=== PATIENT | female | born 1985 | race Caucasian/White ===

== ENCOUNTER 2023-06-25 21:08 | Emergency (ER) | payer OTHER, SELFPAY ==
[2023-06-25 21:10] VITALS: BP 191/103; PULSE 112; RESP 18; TEMP 36.8; O2SAT 97
[2023-06-25 21:20] VITALS: BP 208/100; PULSE 110; RESP 30; O2SAT 98
[2023-06-25 21:26] VITALS: BMI 49.1
[2023-06-25 21:28] LABS: Bedside Glucose 193 mg/dL (74-106)
--- NOTE | 2023-06-25 21:30 | CT_ITS ---
EXAM: CT HEAD WITHOUT INTRAVENOUS CONTRAST CLINICAL INDICATION: seizure -- S?P RT MCA Bypass TECHNIQUE: Multiple axial images were obtained of the head without intravenous contrast. This CT exam was performed using one or more of the following dose reduction techniques: automated exposure control, adjustment of the mA and/or kV according to patient size, and/or use of iterative reconstruction technique. RADIATION DOSE: Total DLP: 782.05 mGy-cm. COMPARISON: No relevant prior studies available. FINDINGS: BRAIN AND EXTRA-AXIAL SPACES: Unremarkable. No intra- or extra-axial hemorrhage. No evidence of acute infarct. No intracranial mass or mass effect. There is preservation of the pinto/white matter interface. Posterior fossa structures are unremarkable. Ventricles are appropriate for age. No hydrocephalus. Basal cisterns are patent. BONES/JOINTS: Findings of right craniotomy noted with overlying soft tissue swelling and subcutaneous emphysema. Bone flap is not depressed. Typical dural hyperdensity noted just beneath the bone flap. SINUSES: Unremarkable as visualized. Clear. MASTOID AIR CELLS: Unremarkable. Clear. ORBITS: Visualized globes, extraocular muscles, optic nerves and retrobulbar fat appear unremarkable. CT/Brain/Head without Contrast IMPRESSION: Findings of recent right craniotomy. No acute intracranial abnormality; no acute intracranial hemorrhage or infarction identified. Electronically Signed: Joey Guzman MD at 22:31 EDT ,
--- NOTE | 2023-06-25 21:31 | EKG12_ITS ---
Test Reason : dysrhythmia Blood Pressure : / mmHG Vent. Rate : 098 BPM Atrial Rate : 098 BPM P-R Int : 144 ms QRS Dur : 096 ms QT Int : 384 ms P-R-T Axes : 035 000 031 degrees QTc Int : 490 ms Normal sinus rhythm Moderate voltage criteria for LVH, may be normal variant ( R in aVL , Anderson product ) Prolonged QT Abnormal ECG Confirmed by Chavez Briceño ([id number]), slot editor WENDY FITCH ([id number]) on 06/26/2023 11:13:52 AM Referred By: Paramjit Confirmed By:Chavez Briceño
[2023-06-25 21:37] LABS: Absolute Lymphocyte Count 3.41 X10^3/uL (0.83-4.51); Absolute Neutrophil Count 4.7 X10^3/uL (2.0-7.7); Basophil# 0.05 X10^3/uL; Basophil% 0.5 % (0-1); Eosinophil# 0.48 X10^3/uL; Eosinophils% 5.1 % (0-5); Hematocrit 37.1 % (37-47); Hemoglobin 12.7 g/dL (12.0-15.0); Lymphocyte # 3.41 X10^3/ul (0.83-4.51); Lymphocyte % 36.5 % (19-41); Mean Corp Hgb Conc 34.2 g/dL (32-36); Mean Corpuscular Hgb 28.9 pg (27.0-32.0); Mean Corpuscular Volume 84.5 fL (81-99); Mean Platelet Vol. 10.9 fl (6.2-12.0); Monocyte# 0.51 X10^3/uL; Monocyte% 5.5 % (0-10); NRBC Flagged by Analyzer 0.2 % (0-5); Neutrophil # 4.74 X10^3/uL (2.7-7.7); Neutrophil % 50.9 % (47-70); Platelet Count 313 K/mm3 (150-450); RBC Distribution Width CV 13.4 % (11.6-14.6); RBC Distribution Width SD 41.2 fl (35.1-43.9); Red Blood Count 4.39 M/mm3 (4.2-5.4); White Blood Count 9.3 K/mm3 (4.4-11.0)
[2023-06-25 21:41] LABS: International Normalized Ratio 0.9; Partial Thromboplast Time 26.6 Seconds (24.1-36.2); Prothrombin Time (Protime)PT. 12.2 SECONDS (11.7-14.9)
[2023-06-25 21:50] VITALS: PULSE 92; RESP 26
[2023-06-25 21:50] LABS: AST(SGOT) 44 U/L (15-37); Alanine Aminotransfer ALT/SGPT 47 U/L (13-56); Albumin, Serum 3.3 g/dL (3.2-5.0); Alkaline Phosphatase 111 U/L (45-117); Anion Gap 8 (5-15); BUN 22 mg/dL (7-18); BUN/Creat Ratio 23.9 RATIO (10-20); Bilirubin, Direct 0.11 mg/dL (0.00-0.30); Calcium,Total 9.6 mg/dL (8.5-10.1); Chloride 99 mmol/L (98-107); Creatinine, Serum 0.92 mg/dL (0.55-1.02); EST Glomerular Filtration Rate 73 mL/min (>60); Est Glom Filt Rate - Afr Amer 88 mL/min (>60); Estimated Creatinine Clearance 112.05 ml/min; Globulin 4.1 g/dL (2.2-4.2); Glucose 194 mg/dL (74-106); Potassium 4.2 mmol/L (3.5-5.1); Protein, Total 7.4 g/dL (6.4-8.2); Sodium Level 133 mmol/L (136-145)
[2023-06-25 22:00] VITALS: BP 163/88; PULSE 87; RESP 11
--- NOTE | 2023-06-25 22:14 | RAD_ITS ---
EXAM: XR CHEST, 1 VIEW CLINICAL INDICATION: hypertension TECHNIQUE: Frontal view of the chest. COMPARISON: No relevant prior studies available. FINDINGS: LUNGS AND PLEURAL SPACES: Unremarkable. No consolidation or edema. No pneumothorax. No effusion. HEART: Upper normal heart size, with normal pulmonary vasculature for technique. MEDIASTINUM: Central airways and mediastinal contour are unremarkable. No mediastinal widening. BONES/JOINTS: Unremarkable. No acute fracture. SOFT TISSUES: Unremarkable. RAD/Chest 1 View (Portable) IMPRESSION: No radiographic evidence of acute cardiopulmonary disease. Electronically Signed: Joey Guzman MD at 22:25 EDT ,
[2023-06-25 22:32] VITALS: BP 186/101; PULSE 95; RESP 23
[2023-06-25 22:32] LABS: Lactic Acid 1.4 mmol/L (0.4-1.9)
--- NOTE | 2023-06-25 22:33 | EX.ED.DYSGE1 ---
HPI History of Present Illness Chief Complaint: Seizure Informant: patient and family Narrative Narrative: 38-year-old female presenting to the emergency room with acute neurologic changes. Patient states that she was admitted to the hospital at [facility] 20 June 2023 and underwent a right STA MCA bypass. She was discharged home from the hospital 23 June 2023. She states while in the hospital she did not have any seizures. Leading up to her surgery the patient has had a change of sensation left maxillary sinus region of the face. She states that it feels to touch the same bilaterally but to her it feels different. She is also noted some tingling in her hand particularly in the radial nerve distribution. However she states that has occasionally been in all digits. Her underlying principal problem is moyamoya disease. She also has been diagnosed with SYEDA, diabetes, hypercholesterolemia, hypertension. Patient is not currently anticoagulated. While in the hospital the patient was started on Keppra. She has not been taking any oxycodone for several days. She is not currently on any steroids. Tonight about 30 minutes prior to arrival she was talking on the phone. States her right face began to twitch and her eye was opening and closing. States she did not have control of her tongue and it was moving. Her mouth however was open. She states she had a increase in the numbness/tingling of the right hand and then the right face. The twitching symptoms lasted approximately 1 minute and resolved. Patient notes that she has never had a seizure before but has been told that she has had several strokes in the past. [facility] Medical History (Updated 06/25/23 @ 22:[address] Álvaro Yusuf DO) Anxiety and depression Diabetes mellitus Hypercholesterolemia Hypertension Moyamoya disease Obstructive sleep apnea Allergy/AdvReac Type Severity Reaction Status Date / Time No Known Allergies Allergy Verified 06/25/23 21:13 Social History Smoking Status: Never smoker EXAM Physical Exam Const Vital Signs: 06/25/23 21:10 06/25/23 21:20 06/25/23 21:50 Temperature 98.3 F Temperature Source Temporal Pulse Rate 112 H 110 H 92 Respiratory Rate 18 30 H 26 H Blood Pressure 191/103 H 208/100 H Blood Pressure Mean 132 136 Pulse Ox 97 98 Oxygen Delivery Method Room Air Room Air 06/25/23 22:00 06/25/23 23:00 06/25/23 22:32 Temperature Temperature Source Pulse Rate 87 87 95 Respiratory Rate 11 L 22 H 23 H Blood Pressure 163/88 H 182/90 H 186/101 H Blood Pressure Mean 110 120 120 Pulse Ox 96 Oxygen Delivery Method Room Air Positive well nourished, well developed and obese General Appearance ED: well developed Nutritional Appearance: obese HEENT Reports normocephalic, head/scalp atraumatic and moist mucous membranes Eyes PERRL and EOMs intact bilaterally Neck no lymphadenopathy, supple and no JVD Resp normal respiratory effort and clear to auscultation bilaterally Cardio regular rate, regular rhythm and no murmurs GI normal to inspection, nondistended, normoactive bowel sounds and non-tender Palpation: soft Back/Spine no CVA tenderness and normal ROM Extremity normal to inspection General Extremety ED: Negative for edema General Extremity: Negative for edema Neuro oriented x3 and CN's II-XII intact bilaterally Sensorium / Orientation: alert Motor Exam: strength 5/5 throughout Psych mental status grossly normal Mood & Affect: Negative for depressed or tearful Skin no rashes or lesions noted and no wounds MDM MDM MDM Narrative Medical decision making narrative: Initial stroke team was called however the patient is currently not experiencing her symptoms and by history sounds more like a focal seizure. Patient was brought back to the room where I met with her and her parents and reviewed her recent clinical course at the hospital. Initial head CT shows no acute findings other than recent craniotomy. Basic blood work showed a normal CBC BMP was in within normal limits except for glucose of 194. Lactic acid 1.4 liver enzymes showed an AST of 44 urinalysis showed no acute findings. Patient was observed. Her blood pressure has been running high but trending down. Reached a low point of around 143/88 systolic. However going back to the room and reviewing the results with the patient and her family she continues rounder 170-180. She is requesting Tylenol give her Tylenol. I am also going to order labetalol. I spoke with [facility] neurosurgeon on-call. Plan will be to transfer her there. In the interim regarding give her 500 mg of Keppra. Patient is comfortable with the plan. Will continue to monitor her clinically History & Record Review Discussion w/independent historian: Patient and Family Lab Data Attestation: I reviewed the patient's lab results. Labs: Laboratory Results - last 24 hr 06/25/23 06/25/23 06/25/23 21:10 21:11 21:54 WBC 9.3 RBC 4.39 Hgb 12.7 Hct 37.1 MCV 84.5 MCH 28.9 MCHC 34.2 RDW Std Deviation 41.2 RDW Coeff of Benitez 13.4 Plt Count 313 MPV 10.9 Immature Gran % (Auto) 1.500 H Neut % (Auto) 50.9 Lymph % (Auto) 36.5 Towns % (Auto) 5.5 Eos % (Auto) 5.1 H Baso % (Auto) 0.5 Absolute Neuts (auto) 4.7 Absolute Lymphs (auto) 3.41 Nucleated RBC % 0.2 PT 12.2 INR 0.9 APTT 26.6 Sodium 133 L Potassium 4.2 Chloride 99 Carbon Dioxide 26.0 Anion Gap 8 BUN 22 H Creatinine 0.92 Estim Creat Clear Calc 112.05 Est GFR (MDRD) Af Amer 88 Est GFR (MDRD) Non-Af 73 BUN/Creatinine Ratio 23.9 H Glucose 194 H Lactic Acid 1.4 Calcium 9.6 Total Bilirubin 0.40 Direct Bilirubin 0.11 AST 44 H ALT 47 Alkaline Phosphatase 111 Total Protein 7.4 Albumin 3.3 Globulin 4.1 Urine Color Urine Clarity Urine pH Ur Specific [place] Urine Protein Urine Glucose (UA) Urine Ketones Urine Occult Blood Urine Nitrite Urine Bilirubin Urine Urobilinogen Ur Leukocyte Esterase Urine RBC Urine WBC Ur Squamous Epith Cells Urine Bacteria Urine Mucus POC Glucose 193 H 06/25/23 22:30 WBC RBC Hgb Hct MCV MCH MCHC RDW Std Deviation RDW Coeff of Benitez Plt Count MPV Immature Gran % (Auto) Neut % (Auto) Lymph % (Auto) Towns % (Auto) Eos % (Auto) Baso % (Auto) Absolute Neuts (auto) Absolute Lymphs (auto) Nucleated RBC % PT INR APTT Sodium Potassium Chloride Carbon Dioxide Anion Gap BUN Creatinine Estim Creat Clear Calc Est GFR (MDRD) Af Amer Est GFR (MDRD) Non-Af BUN/Creatinine Ratio Glucose Lactic Acid Calcium Total Bilirubin Direct Bilirubin AST ALT Alkaline Phosphatase Total Protein Albumin Globulin Urine Color Yellow Urine Clarity Clear Urine pH 6.0 Ur Specific [place] 1.010 Urine Protein 30 H Urine Glucose (UA) 50 H Urine Ketones Negative Urine Occult Blood 50 H Urine Nitrite Negative Urine Bilirubin Negative Urine Urobilinogen Normal Ur Leukocyte Esterase Negative Urine RBC 0-5 SEEN Urine WBC 0-5 SEEN Ur Squamous Epith Cells 0 SEEN Urine Bacteria 0 SEEN Urine Mucus 0 SEEN POC Glucose Radiography Diagnostic Testing: Clinical Impression(s) from Imaging Studies Brain CT 06/25/23 21:30 IMPRESSION: Findings of recent right craniotomy. No acute intracranial abnormality; no acute intracranial hemorrhage or infarction identified. Electronically Signed: Joey Guzman MD at 22:31 EDT , Chest X-Ray 06/25/23 22:14 IMPRESSION: No radiographic evidence of acute cardiopulmonary disease. Electronically Signed: Joey Guzman MD at 22:25 EDT , EKG Initial EKG: Attestation: I personally reviewed and interpreted this EKG as follows: Comments: Normal sinus rhythm ventricular rate of 98 bpm Management Discussion w/another healthcare provider: [employer] Of [employer] (MICHAEL NSG) Discharge Plan Triage Chief Complaint: Seizure ED Provider: Álvaro Yusuf Dx/Rx/DC Orders Primary Care Provider: MONTY MEAD Referrals: NOT,DEFINED [Non-Staff] - NIHSS NIHSS 1a. Level of Consciousness: Alert; keenly responsive 1b. LOC Questions: Answers BOTH questions correctly. 1c. LOC Commands: Performs both tasks correctly. 2. Best Gaze: Normal 3. Visual: No visual loss 4. Facial Palsy: Normal symmetrical movements 5a. Left Arm: No drift; arm holds 90 (or 45) degrees for full 10 seconds 5b. Right Arm: No drift; arm holds 90 (or 45) degrees for full 10 seconds 6a. Left Leg: No drift; leg holds 30-degree position for full 5 seconds 6b. Right Leg: No drift; leg holds 30-degree position for full 5 seconds 7. Limb Ataxia: Absent 8. Sensory: Normal; no sensory loss 9. Best Language: No aphasia; normal 10. Dysarthria: Normal 11. Extinction and Inattention: No abnormality Total: 0
[2023-06-25 22:47] LABS: Bacteria 0 SEEN /hpf (None Seen); Mucous, Urine 0 SEEN /hpf (<or=2+); Squamous Epithelial Cells - UA 0 SEEN /hpf (5-10)
[2023-06-25 22:49] LABS: Color, Urine Yellow (Yellow); Glucose, Dipstick 50 mg/dl (Normal); Ketone-Dipstick Negative (Negative); Leukocyte Esterase-Dipstick Negative /ul (Negative); Nitrite-Dipstick Negative (Negative); Occult Blood-Urine 50 /ul (Negative); Protein-Dipstick 30 mg/dl (Negative); Urine Bilirubin Dipstick Negative (Negative); Urine Clarity Clear (Clear); Urine Urobilinogen Normal (Normal)
[2023-06-25 22:54] LABS: Red Blood Cells-Urine 0-5 SEEN /hpf (0-5); White Blood Cells 0-5 SEEN /hpf (0-5)
[2023-06-25 23:00] VITALS: BP 182/90; PULSE 87; RESP 22; O2SAT 96
--- NOTE | 2023-06-25 23:35 | ED.RN ---
PT ACCEPTED AT [facility] H63 BED SQUAD CALLED @0130 ETA 3/4 HRS. REQUESTED TO [facility], WILL CALL BACK IF SUCCESSFUL.
[2023-06-25] MEDS: levETIRAcetam IV 500 MG in 0.9% Normal Saline (100mL Bag) 100 ML 400 MG IV (23:37)
[2023-06-25] MEDS: Acetaminophen 500 MG Tablet 1000 MG PO (23:38)
[2023-06-25] MEDS: Labetalol (Prefilled) 20 MG/4 ML IV (23:38)
[2023-06-26] VITALS (8 sets, daily range): BP systolic 156–194; BP diastolic 75–95; PULSE 76–86; RESP 16–24; TEMP 36.6; O2SAT 91–95
[2023-06-26] MEDS: Labetalol (Prefilled) 20 MG/4 ML IV (03:49)
--- NOTE | 2023-06-26 04:22 | ED.RN ---
report called to Lizzette PARRISH to [facility] [phone] [id number] bed 7
== END 2023-06-26 03:54 | disposition short-term general hospital (02) ==
PROVIDERS: Emergency Provider Emergency Medicine; Visit Provider Emergency Medicine
DX: R56.9 Unspecified convulsions (principal); E11.9 Type 2 diabetes mellitus without complications; G47.33 Obstructive sleep apnea (adult) (pediatric); E66.9 Obesity, unspecified
CPT/HCPCS: 70450; 71045; 80048; 80076; 81001; 82962; 83605; 85025; 85610; 85730; 93005; 96365; 96375; 96376; 99285